=== PATIENT | male | born 1975 | race Caucasian/White ===

== ENCOUNTER 2017-09-28 13:06 | Outpatient (RCR) | payer OTHER, SELFPAY ==
--- NOTE | 2017-09-28 20:15 | MASS.EVAL_ITS ---
Massage Therapy Evaluation: Initial Evaluation Date: 09/28/2017 SUBJECTIVE: Conor is a 42 year old male who was referred to the [facility] facility for a massotherapy evaluation by Dr. Abhinav Paiz with the diagnosis of back and neck pain. Conor presents today with the symptoms of neck and upper back pain and tension. He also has muscle tension and pain in his low back and right hip with pain and numbness radiating down his right leg. Conor reports having a medical history of lumbar pain and chronic neck pain with radiating pain in his neck, upper and mid back. He also complains of numbness in his right upper and lower leg. He reports having minimal limitations during his daily activities but does suffer from restless leg syndrome. OBJECTIVE: Upon observation Conor has poor posture with his head forward and shoulders forward from the neutral position in sitting and standing. After examination and palpation I found Conor to have very high muscle tension with tenderness and myofascial restrictions in his sub occipitals, levator scapulae, trapezius, rhomboids, scalenes, and thoracic paraspinals. His left shoulder was tight and tender in the trapezius, supra and infraspinatus muscles. His right hip, right lumbar muscles and right hamstrings were also very tight with restrictions. The first treatment consisted of a one hour massage to his full body with myofascial release, muscle stripping, trigger point compression techniques, and cervical manual traction. ASSESSMENT: I feel that Conor is a good candidate for massotherapy at this time. He had a favorable response to the first treatment with reduction in his muscle aches, pain and tension. He also had improvement in his cervical flexibility and right hip flexibility. PLAN: The plan of care was reviewed with the patient. The patient is to be seen on as needed basis for a total of ten sessions with the recommendation of once every four weeks for a one hour treatment.
--- NOTE | 2018-02-14 15:46 | MASS.DISCH ---
Massage Therapy Discharge Summary: Discharge Date: 02/14/2018 Conor was seen for a massotherapy evaluation on 09/28/2017 with the diagnosis of back and neck pain. He was treated with one session of massage therapy consisting of deep pressure soft tissue techniques, myofascial release and trigger point compression to his cervical, thoracic, lower back, upper extremities and hips. Conor responded well to the therapy by reporting decreased tension and pain throughout his neck, shoulders, lower back and hips. His goals for therapy were not met due to no follow up treatment sessions performed. At this time this patient is being discharged from our care at [facility] facility.
== END 2017-09-28 19:00 | disposition home or self-care (01) ==
LOC: MASS 13:06
PROVIDERS: Family Provider Family Medicine; PCP Family Medicine; Visit Provider Family Medicine
DX: M54.9 Dorsalgia, unspecified (principal)
CPT/HCPCS: 97124

== ENCOUNTER → 2023-09-17 | Outpatient (CLI) | payer OTHER, SELFPAY ==
[2023-09-17 11:12] LABS: T4 Free Direct 0.92 ng/dL (0.76-1.46); Thyroid Stim Hormone (TSH) 1.15 uIU/mL (0.358-3.74)
[2023-09-20 15:08] LABS: Thyroglobulin Antibody < 1.0 IU/mL (0.0-0.9); Thyroid Peroxidase AB < 9 IU/mL (0-34)
== END | disposition home or self-care (01) ==
PROVIDERS: PCP Family Medicine; Referring Provider Family Medicine; Visit Provider Family Medicine
DX: Z00.00 Encounter for general adult medical examination without abnormal findings (principal); H05.20 Unspecified exophthalmos
CPT/HCPCS: 36415; 84439; 84443; 86376; 86800

== ENCOUNTER → 2023-09-27 | Outpatient (CLI) | payer OTHER, SELFPAY ==
--- NOTE | 2023-09-27 09:14 | MRI_ITS ---
STUDY: MRI BRAIN WITH AND WITHOUT CONTRAST REASON FOR EXAM: Male, 48 years old. UNILATERAL BRYANT, , EXOPTHALMOS RT EYE TECHNIQUE: Standardized multiplanar fat and water weighted pulse sequences were obtained. IV 22ml clariscan was administered for the contrast portion of the examination. COMPARISON: None. FINDINGS: Normal size of the ventricles and extra-axial spaces for the patient''s age. Few punctate hyperintensities in the periventricular and subcortical white matter primarily of the frontal and anterior parietal lobes may represent microangiopathic gliosis from chronic hypertension or metabolic disease but other possibilities include hypercoagulable state, vasculitis, migraine headaches, Lyme disease, or demyelinating disease., No contrast enhancement of these areas. There is no evidence for recent intracranial ischemia or other cause of cytotoxic edema on diffusion weighted imaging (DWI). Normal T2* images of the brain without demonstrated susceptibility artifact. There is no demonstrated hemosiderin stain. Normal bilateral basal ganglia. Normal thalami. There is no extra-axial fluid accumulation. Normal flow voids within the major intracranial circulation suggesting patency by spin echo criteria. Normal venous enhancement. There is no enhancing intra-axial or extra-axial abnormality. Normal sella turcica, pituitary gland, infundibular stalk, optic chiasm and hypothalamus. Normal tectal plate and pineal gland. Normal midbrain, kallie and medulla. Normal cerebellum. Normal basal cisterns. Normal bilateral temporal bones. Normal bilateral internal auditory canals. No demonstrated orbital abnormality, within the constraints of a routine brain study. Normal visualized paranasal sinuses. Normal calvarium and skull base. Normal visualized soft tissue structures. Normal visualized upper cervical spine. MRI/Brain W/WO Contrast IMPRESSION: Few punctate hyperintensities in the periventricular and subcortical white matter primarily of the frontal and anterior parietal lobes may represent microangiopathic gliosis from chronic hypertension or metabolic disease but other possibilities include hypercoagulable state, vasculitis, migraine headaches, Lyme disease, or demyelinating disease. Electronically Signed: Carlos Bartlett MD at 14:28 EDT ,
== END | disposition home or self-care (01) ==
PROVIDERS: PCP Family Medicine; Referring Provider Family Medicine; Visit Provider Family Medicine
DX: H05.241 Constant exophthalmos, right eye (principal); R51.9 Headache, unspecified
CPT/HCPCS: 70553; A9575

== ENCOUNTER → 2023-10-01 | Outpatient (CLI) | payer OTHER, SELFPAY ==
--- NOTE | 2023-10-01 12:42 | MRI_ITS ---
STUDY: MRA OF THE HEAD WITHOUT CONTRAST REASON FOR EXAM: Male, 48 years old. RT EYE UNILAT HEADACHE, COMPARE TO PREVIOUS MRI TECHNIQUE: 3-D ajyb-ez-txknyq (TOF) imaging was performed with MIPs. The study was performed unenhanced. COMPARISON: None. FINDINGS: Normal bilateral petrous carotid arteries. Normal right cavernous carotid artery with a normal supraclinoid bifurcation. Normal left cavernous carotid artery with a normal supraclinoid bifurcation. Normal right A1 segments of the anterior cerebral artery. Normal left A1 segments of the anterior cerebral artery. Normal intact anterior communicating artery (ACOM). Normal bilateral A2 segments of the anterior cerebral arteries. Normal right M1 and M2 segments of the middle cerebral arteries, with a normal M1 bifurcation. Normal left M1 and M2 segments of the middle cerebral arteries, with a normal M1 bifurcation. Normal right posterior communicating artery (PCOM). Normal left posterior communicating artery (PCOM). Normal bilateral vertebral arteries. Normal basilar artery with a normal basilar bifurcation. The visualized bilateral superior cerebellar (SCA) arteries are normal. Normal bilateral P1, P2 and visualized P3 segments of the posterior cerebral arteries. There is no demonstrated aneurysm of the [place]. There is no major vessel occlusion or hemodynamically significant stenosis. There is no demonstrated abnormality of the visualized brain. MRI/MRA Head ONLY without Contrast IMPRESSION: Normal MRA of the head Electronically Signed: Carlos Bartlett MD at 13:54 EDT ,
== END | disposition home or self-care (01) ==
LOC: MRI 12:41
PROVIDERS: PCP Family Medicine; Referring Provider Family Medicine; Visit Provider Family Medicine
DX: H05.241 Constant exophthalmos, right eye (principal); R51.9 Headache, unspecified
CPT/HCPCS: 70544

== ENCOUNTER 2023-12-30 05:27 | Day surgery (SDC) | payer OTHER, SELFPAY ==
[2023-12-30] VITALS (8 sets, daily range): BP systolic 108–163; BP diastolic 72–98; PULSE 62–77; RESP 16; TEMP 36.2–36.9; O2SAT 94–99; BMI 33.5
--- NOTE | 2023-12-30 06:30 | EGD_PTH ---
PATIENT: JOSE MERCADO III LOC: EN U#:[id number] AGE/SX: 48/M ROOM: RE12/30/[address]: Dr. Dustin Martinez DO : 1975 BED: DIS: 12/30/2023 SPEC #: [id number] RECD: 12/30/23 11:06 STATUS: JACI AMPARO #: [id number] RISHI: 12/30/23 06:[address]: Dustin Martinez DEPT: SURGICAL PATHOLOGY RECD BY: Ruthie Albright ENTERED: 12/30/23 12:06 SP TYPE: EGD BIOPSY OT DR: Dr. Abhinav Paiz DO Tissues: A - Esophagus, NOS B - Duodenum, NOS C - Sigmoid colon biopsy Procedures: Special Stain Group I Surgery Specimen Level IV Alcian Blue/PAS (control) HEADER OPERATION: Colonoscopy, EGD with biopsy PRE-OP DIAGNOSIS: GERD, encounter for screening colonoscopy TISSUE SUBMITTED: A- Distal esophagus biopsy, B- Duodenal biopsy, C- Sigmoid polyp biopsy MICROSCOPIC DIAGNOSIS A. Distal esophagus, biopsy: Fragments of gastric mucosa with chronic inflammation. Intestinal metaplasia (goblet cell metaplasia) not identified. See comment. B. Duodenum, biopsy: Fragments of small intestinal mucosa, no pathologic diagnosis. C. Sigmoid polyp, biopsy: Hyperplastic polyp. SKYLA/ 12/31/2023 COMMENT A. Alcian blue/PAS stain with matched control is used in the evaluation of the specimen. MICROSCOPIC DESCRIPTION Slides are reviewed. GROSS DESCRIPTION A. Received in fixative is one container labeled with the patient's name and designated Distal esophagus biopsy. The specimen consists of two irregular fragments of light koo soft tissue that in aggregate measure 1.0 x 0.6 x 0.1 cm. The specimen is totally submitted in one cassette. B. Received in fixative is one container labeled with the patient's name and designated Duodenum biopsy. The specimen consists of multiple irregular fragments of light koo soft tissue that in aggregate measure 1.2 x 0.3 x 0.1 cm. The specimen is totally submitted in one cassette. C. Received in fixative is one container labeled with the patient's name and designated Sigmoid polyp biopsy. The specimen consists of two irregular fragments of light koo soft tissue that in aggregate measure 0.6 x 0.2 x 0.1 cm. The specimen is totally submitted in one cassette. SJ.mr 12/30/2023 TC:3 CPT:47974w0, 13937
--- NOTE | 2023-12-30 06:34 | PCM.PRE.AN2 ---
ASA Classification* ASA Classification ASA Classification: 2 Assessment & Plan Anesthesia* Anesthesia Assessment Anesthesia Assessment: Discussed sedation and/or anesthesia options, risks, benefits, and alternatives with patient/parents/legal guardian/POA. Questions invited. The patient/parents/legal guardian/POA seems to understand and agrees to proceed with anesthesia plan. Reviewed the physical assessment, medical history, allergy history and patient home medications list prior to surgery/procedure/anesthetic and documented any changes. Performed airway and anesthesia risk assessments. Anesthesia Type Anesthesia Type: MAC History Source History Obtained from:: Patient and Chart Anesthesia Focused Assessment* Temperature: 97.1 F Pulse Rate: 70 Blood Pressure: 163/98 Respiratory Rate: 16 Pulse Ox: 99 Airway Assessment Mouth opens: >3 cm Mallampati Score: II Teeth Condition: Intact Neck Range of motion (ROM): Full ROM Focused Labs Anesthesia Preop lab: CBC WBC 8.1 K/mm3 (4.4-11.0) 09/17/23 06:47 RBC 5.19 M/mm3 (4.6-6.2) 09/17/23 06:47 Hgb 15.5 g/dL (13.0-16.5) 09/17/23 06:47 Hct 46.2 % (40-54) 09/17/23 06:47 Plt Count 360 K/mm3 (150-450) 09/17/23 06:47 CHEMISTRY Potassium 3.9 mmol/L (3.5-5.1) 09/17/23 06:47 Sodium 138 mmol/L (136-145) 09/17/23 06:47 Magnesium 1.8 mg/dL (1.8-2.4) 02/13/15 14:44 Phosphorus 3.5 mg/dL (2.5-4.9) 09/17/23 06:47 BUN 11 mg/dL (7-18) 09/17/23 06:47 Creatinine 0.98 mg/dL (0.70-1.30) 09/17/23 06:47 Glucose 93 mg/dL (74-106) 09/17/23 06:47 TSH 1.15 uIU/mL (0.358-3.74) 09/17/23 08:54 COAG Pre-Assessment Diagnosis/Proposed Procedure Planned Operative Procedure(s): COLONOSCOPY, EGD Anesthesia History Anesthesia History - manager installation: Anesthesia History - manager installation Hx Hospitalization No 12/28/23 15:29 Any Problems With Anesthesia No 12/28/23 15:29 Cholinesterase deficiency No 12/28/23 15:29 You/Your Family Experience No 12/28/23 15:29 fever (hyperthermia) with Relationship Recent Exposure to Contagious No 12/30/23 05:55 Disease Does patient have nerve No 12/28/23 15:29 stimulator Patient instructed to have device shut off --Does patient have Pacemaker No 12/30/23 05:55 or ICD? When Was Last Pacemaker Check QUESTION #4 FULL TEXT: You/Your Family Experience fever (hyperthermia) with Anesthesia Last Oral Intake Last Oral intake: Last Oral Intake NPO since 04:30 12/30/23 05:55 Meds taken in AM with sips of Yes 12/30/23 05:55 water? Meds patient instructed to take am of surgery PONV PONV - manager installation: PONV - manager installation Female No 12/28/23 15:29 HX of Motion Sickness No 12/28/23 15:29 HX of N/V After Surgery No 12/28/23 15:29 Non-Smoker Yes 12/28/23 15:29 Duration of Surgery greater No 12/28/23 15:29 than 60 minutes Number of Risk Factors 1 12/28/23 15:29 PONV Score Low Risk 12/28/23 15:29 Height & Weight Height & Weight: Anesthesia: Height & Weight Height 6 ft 12/30/23 05:55 Weight: 112 kg 12/30/23 05:55 Body Mass Index (BMI) 33.5 12/30/23 05:55 Respiratory Assessment Respiratory Assessment - manager installation: Respiratory Tract Infection Hx - manager installation Hx Respiratory Tract Infection No 12/28/23 15:29 STOP Sleep Apnea STOP Sleep Apnea - manager installation: STOP Sleep Apnea - manager installation Hx Hypertension Yes: CONTROLLED WITH MEDS 12/28/23 15:29 Hx Sleep Apnea Yes 12/28/23 15:29 CPAP Yes 12/28/23 15:29 BIPAP No 12/28/23 15:29 Do you snore loudly (louder than talking or can be heard Do you often feel tired/ fatigued/ sleepy during daytime? Has anyone observed you stop breathing during sleep? STOP Results Positive 12/28/23 15:29 QUESTION #5 FULL TEXT : Do you snore loudly (louder than talking or can be heard through closed doors)? 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 Specify any problems Hx of Preganancy in last 3 N/A 12/28/23 15:29 Months Nurse Filling Out Transfusion [id number] 12/28/23 15:29 & Questions: Date: 12/28/23 12/28/23 15:29 Time: 15:31 12/28/23 15:29 Patient unable to answer at this time (ie. confused, unrespo /Reproduction History /Reproductive History - manager installation: /Reproductive Hx- manager installation Hx Now Gestational Age (in weeks): EDC: Hx Hx Para Hx Section SAB PFSH Medical History Wears glasses Fatty liver Gastric reflux Sleep apnea CPAP (continuous positive airway pressure) dependence Home Medications ?Medication ?Instructions ?Recorded ?Last Taken ?Type gabapentin 600 mg tablet,extended 900 mg PO QPM 09/30/23 Unknown History release 24 hr hydrochlorothiazide 25 mg tablet 25 mg PO DAILY 09/30/23 Unknown History omeprazole 20 mg capsule,delayed 20 mg PO DAILY 09/30/23 12/30/23 History release magnesium 200 mg tablet 200 mg PO DAILY 12/28/23 Unknown History xylllcmz-fma-komne 120 mcg-lutein 1 tab PO DAILY 12/28/23 Unknown History 150 mcg-herb 50 mg chewable tablet (Alive Men's 50 Plus Multivitamin) omega 9-xre-gmj-fish oil 1,200 mg 1 cap PO DAILY 12/28/23 Unknown History (144 mg-216 mg) capsule (Fish Oil) Allergy/AdvReac Type Severity Reaction Status Date / Time No Known Allergies Allergy Verified 12/30/23 05:49 Surgical History History of repair of pyloric stenosis Social History Smoking Status: Former smoker Review of Systems (Anesthesia) ROS Narrative System reviewed and no additional complaints, except as documented.
--- NOTE | 2023-12-30 06:35 | PCM.HP.BLA ---
History and Physical Date of Admission: 12/30/23 BILLY MERCADO, is a 48 M who presents to the office today for initial consult. *BGI established 12.03.23 pt reports that it has been 10+ years since last scopes and is here to establish care and get scopes done. Pt reports that his only GI symptom is HB, is taking Omeprazole 20mg daily and states he only had HB once in the past week. ROS Const Constitutional: No fatigue, fever(s) or weight change ENT ENT: No difficulty swallowing Gastro GI: Positive for heartburn; No abdominal pain, belching, bloating, change in bowel habits, change in stool character, coffee ground emesis, constipation, cramping, diarrhea, difficulty swallowing, feeling full early, excessive flatus, incontinent of stools, Vomiting blood/hematemesis, Blood in stool, loose stools, Black,tarry stools, nausea/dyspepsia, pain with swallowing, vomiting or other Musc Musculoskeletal: Positive for restless legs and leg pain at night; No joint pain Skin Skin: No yellowing of the eye or itchy eyes Neuro Neurology: Positive for restless legs Psych Psychiatric: No anxiety and No depression Endo Endocrine: No fatigue or weight change Aller/Imm Allergy/Immunologic: No itchy eyes Brian/Lymp Hematologic/Lymphatic: No easy bleeding or easy bruising Exam Const General: cooperative and comfortable Nutritional Appearance: average body habitus and well nourished [facility] Head: normal to inspection Ears: hearing grossly normal bilaterally Nose: external nose normal Face and sinus: normal facial exam Mouth: oral mucosae normal Throat: posterior oropharynx normal Eyes General: appearance normal, both eyes and all related structures Neck Neck: normal visual inspection Chest Chest palpation & inspection: normal inspection of the chest and normal palpation of entire chest wall Resp Effort & Inspection: normal respiratory effort Auscultation: Bilateral: Clear to Auscultation Cardio Palpation: normal PMI Rate: regular rate Rhythm: regular rhythm GI Inspection: normal to inspection Auscultation: normal bowel sounds Percussion: normal to percussion Palpation: no hepatosplenomegaly Skin General: no rashes or lesions noted Neuro General: patient alert Extrem General: normal to inspection Psych Affect: normal affect Assessment and Plan Assessment and Plan (1) GERD (gastroesophageal reflux disease): Status: Acute (2) Encounter for screening colonoscopy: Status: Acute Plan: 48-year-old gentleman with past medical history of gastroesophageal reflux disease. He has had reflux disease for several years. He has always been a PPI therapy. He is not having that he atypical symptoms of reflux disease including no chest pain, shortness of breath, cough or abdominal pain. He is also here because he needs a screening colonoscopy. He will undergo upper and lower endoscopy to evaluate GI tract. He has not been just a bit of time infection, sepsis, perforation, and . He will have an ASA of 3. I have examined the patient and the H&P has been reviewed. There are no clinical changes since date of exam.
--- NOTE | 2023-12-30 07:15 | OP.EGD_ITS ---
Patient Name: Conor Tipton Procedure Date: 12/30/2023 6:26 AM Date of : 1975 Age: 48 Procedure: Upper GI endoscopy Indications: Heartburn, Esophageal reflux Providers: Dustin Martinez DO Referring MD: Abhinav Paiz Medicines: Monitored Anesthesia Care Patient Profile: This is a 48 year old male. Refer to note in patient chart for documentation of history and physical. Patient has symptoms of chronic heartburn. Complications: No immediate complications. Procedure: Pre-Anesthesia Assessment: - Prior to the procedure, a History and Physical was performed, and patient medications and allergies were reviewed. The patient is competent. The risks and benefits of the procedure and the sedation options and risks were discussed with the patient. All questions were answered and informed consent was obtained. Patient identification and proposed procedure were verified by the physician in the pre-procedure area. Mental Status Examination: alert and oriented. Airway Examination: normal oropharyngeal airway and neck mobility. Respiratory Examination: clear to auscultation. CV Examination: normal. Prophylactic Antibiotics: The patient does not require prophylactic antibiotics. Prior Anticoagulants: The patient has taken no anticoagulant or antiplatelet agents except for NSAID medication. ASA Grade Assessment: II - A patient with mild systemic disease. After reviewing the risks and benefits, the patient was deemed in satisfactory condition to undergo the procedure. The anesthesia plan was to use monitored anesthesia care (MAC). Immediately prior to administration of medications, the patient was re-assessed for adequacy to receive sedatives. The heart rate, respiratory rate, oxygen saturations, blood pressure, adequacy of pulmonary ventilation, and response to care were monitored throughout the procedure. The physical status of the patient was re-assessed after the procedure. After obtaining informed consent, the endoscope was passed under direct vision. Throughout the procedure, the patient's blood pressure, pulse, and oxygen saturations were monitored continuously. The was introduced through the mouth, and advanced to the second part of duodenum. The upper GI endoscopy was accomplished without difficulty. The patient tolerated the procedure well. Scope In: 6:47:33 AM Scope Out: 6:52:18 AM Total Procedure Duration Time 0 hours 4 minutes 45 seconds Findings: Non-severe esophagitis with no bleeding was found 38 to 40 cm from the incisors. Biopsies were taken with a cold forceps for histology. Verification of patient identification for the specimen was done. Estimated blood loss was minimal. Abnormal motility was noted in the esophagus. The cricopharyngeus was normal. There are extra peristaltic waves in the esophageal body. The distal esophagus/lower esophageal sphincter is spastic, but gives up passage to the endoscope. Tertiary peristaltic waves are noted. Mucosal changes including ringed esophagus and small-caliber esophagus were found in the lower third of the esophagus. Biopsies were obtained from the proximal and distal esophagus with cold forceps for histology of suspected eosinophilic esophagitis. Verification of patient identification for the specimen was done. Estimated blood loss was minimal. A small hiatal hernia was present. Diffuse mildly congested mucosa was found in the entire examined stomach. Patchy moderate inflammation characterized by congestion (edema), erosions and erythema was found in the duodenal bulb. Biopsies were taken with a cold forceps for histology. Verification of patient identification for the specimen was done. Estimated blood loss was minimal. Impression: - Non-severe reflux esophagitis with no bleeding. Biopsied. - Abnormal esophageal motility, suspicious for presbyesophagus. - Esophageal mucosal changes suggestive of eosinophilic esophagitis. - Small hiatal hernia. - Congestive gastropathy. - Bile duodenitis. Biopsied. - Biopsies were taken with a cold forceps for evaluation of eosinophilic esophagitis. Recommendation: - Discharge patient to home. - Resume previous diet. - Continue present medications. - Await pathology results. Procedure Code(s): --- Professional --- 01311, Esophagogastroduodenoscopy, flexible, transoral; with biopsy, single or multiple CPT copyright 2021 [employer]. All rights reserved. The codes documented in this report are preliminary and upon crystallizer operator review may be revised to meet current compliance requirements. Dustin Martinez DO 12/30/2023 7:14:34 AM This report has been signed electronically. Number of Addenda: 0 Note Initiated On: 12/30/2023 6:26 AM
--- NOTE | 2023-12-30 07:16 | OP.CCLET_ITS ---
12/30/2023 Abhinav Paiz [address] [place] [address] Re : Upper GI endoscopy procedure for Conor Tipton Dear Dr. Paiz This procedure was performed on November. My impressions and recommendations are as follows: Impressions : - Non-severe reflux esophagitis with no bleeding. Biopsied. - Abnormal esophageal motility, suspicious for presbyesophagus. - Esophageal mucosal changes suggestive of eosinophilic esophagitis. - Small hiatal hernia. - Congestive gastropathy. - Bile duodenitis. Biopsied. - Biopsies were taken with a cold forceps for evaluation of eosinophilic esophagitis. Recommendations : - Discharge patient to home. - Resume previous diet. - Continue present medications. - Await pathology results. My findings are described in the full procedure note, which is enclosed. If I can be of further assistance, please feel free to contact me at . Sincerely, Dustin Martinez, 12/30/2023 7:14:34 AM This report has been signed electronically.
--- NOTE | 2023-12-30 07:17 | PCM.POST.ANE ---
Anesthesia: Postop Eval I Current Vital Signs Temperature: 98.5 F Pulse Rate: 77 Blood Pressure: 109/72 Respiratory Rate: 16 Pulse Ox: 95 Oxygen Delivery Method: Room Air Assessment Airway patent: Yes Spontaneous unlabored respirations: Yes Mental status: Awake and Calm nausea: No Vomiting: No Anesthesia Complication: No Fluid Hydration Crystalloid volume administer (ml): 60 Total IV fluid infused: 60 Progress Note Anesthesia document: Postop Eval 1 completed: Yes
--- NOTE | 2023-12-30 07:18 | OP.CCLET_ITS ---
12/30/2023 Abhinav Paiz [address] [facility] [place] [address] Re : Colonoscopy procedure for Conor Tipton Dear Dr. Paiz This procedure was performed on November. My impressions and recommendations are as follows: Impressions : - One 5 mm polyp in the sigmoid colon, removed with a cold biopsy forceps. Resected and retrieved. - Diverticulosis in the recto-sigmoid colon, in the sigmoid colon, at the hepatic flexure and in the ascending colon. Recommendations : - Discharge patient to home. - Resume previous diet. - Repeat colonoscopy in 5 years for surveillance. - Continue present medications. My findings are described in the full procedure note, which is enclosed. If I can be of further assistance, please feel free to contact me at . Sincerely, Dustin Martinez, 12/30/2023 7:17:25 AM This report has been signed electronically.
--- NOTE | 2023-12-30 07:18 | OP.COLON_ITS ---
Patient Name: Conor Tipton Procedure Date: 12/30/2023 6:52 AM Date of : 1975 Age: 48 Procedure: Colonoscopy Indications: Screening for colorectal malignant neoplasm Providers: Dustin Martinez DO Referring MD: Abhinav Paiz Medicines: Monitored Anesthesia Care Patient Profile: This is a 48 year old male. Refer to note in patient chart for documentation of history and physical. Patient has symptoms of chronic heartburn. Last Colonoscopy: none. The patient's first colonoscopy is today. Complications: No immediate complications. Procedure: Pre-Anesthesia Assessment: - Prior to the procedure, a History and Physical was performed, and patient medications and allergies were reviewed. The patient is competent. The risks and benefits of the procedure and the sedation options and risks were discussed with the patient. All questions were answered and informed consent was obtained. Patient identification and proposed procedure were verified by the physician in the pre-procedure area. Mental Status Examination: alert and oriented. Airway Examination: normal oropharyngeal airway and neck mobility. Respiratory Examination: clear to auscultation. CV Examination: normal. Prophylactic Antibiotics: The patient does not require prophylactic antibiotics. Prior Anticoagulants: The patient has taken no anticoagulant or antiplatelet agents except for NSAID medication. ASA Grade Assessment: II - A patient with mild systemic disease. After reviewing the risks and benefits, the patient was deemed in satisfactory condition to undergo the procedure. The anesthesia plan was to use monitored anesthesia care (MAC). Immediately prior to administration of medications, the patient was re-assessed for adequacy to receive sedatives. The heart rate, respiratory rate, oxygen saturations, blood pressure, adequacy of pulmonary ventilation, and response to care were monitored throughout the procedure. The physical status of the patient was re-assessed after the procedure. After I obtained informed consent, the scope was passed under direct vision. Throughout the procedure, the patient's blood pressure, pulse, and oxygen saturations were monitored continuously. The was introduced through the anus and advanced to the cecum, identified by appendiceal orifice and ileocecal valve. The colonoscopy was performed without difficulty. The patient tolerated the procedure well. The quality of the bowel preparation was adequate. The ileocecal valve, appendiceal orifice, and rectum were photographed. Scope In: 6:54:46 AM Scope Withdrawal Time 0 hours 8 minutes 30 seconds Scope Out: 7:06:24 AM Total Procedure Duration Time 0 hours 11 minutes 38 seconds Findings: The perianal and digital rectal examinations were normal. A 5 mm polyp was found in the sigmoid colon. The polyp was sessile. The polyp was removed with a cold biopsy forceps. Resection and retrieval were complete. Verification of patient identification for the specimen was done. Estimated blood loss was minimal. Multiple medium-mouthed diverticula were found in the recto-sigmoid colon, sigmoid colon, hepatic flexure and ascending colon. Impression: - One 5 mm polyp in the sigmoid colon, removed with a cold biopsy forceps. Resected and retrieved. - Diverticulosis in the recto-sigmoid colon, in the sigmoid colon, at the hepatic flexure and in the ascending colon. Recommendation: - Discharge patient to home. - Resume previous diet. - Repeat colonoscopy in 5 years for surveillance. - Continue present medications. Procedure Code(s): --- Professional --- 22701, Colonoscopy, flexible; with biopsy, single or multiple CPT copyright 2021 [employer]. All rights reserved. The codes documented in this report are preliminary and upon railroad crossing protection maintainer review may be revised to meet current compliance requirements. Dustin Martinez DO 12/30/2023 7:17:25 AM This report has been signed electronically. Number of Addenda: 0 Note Initiated On: 12/30/2023 6:52 AM
--- NOTE | 2023-12-30 07:28 | PCM.POSTANE2 ---
Anesthesia Postop Eval I Sum Postop Eval Completion status Anesthesia document: Postop Eval 1 completed: Yes Anesthesia Postop Eval I Summary Anesthesia Postop Eval I Summary: Anesthesia Postop Eval I: Assessment Summary Airway patent Yes 12/30/23 07:18 [email or web address] Spontaneous unlabored Yes 12/30/23 07:18 [email or web address] respirations Mental status Awake,Calm 12/30/23 07:18 [email or web address] nausea No 12/30/23 07:18 [email or web address] Vomiting No 12/30/23 07:18 [email or web address] Anesthesia Postop Eval I: Fluid Summary Crystalloid volume administer 60 12/30/23 07:18 [email or web address] (ml) Colloids volume administered ( ml) Blood Product volume administered (ml) Total IV fluid infused 60 12/30/23 07:18 [email or web address] Anesthesia Postop Eval I: Summary Notes Anesthesia Complication No 12/30/23 07:18 [email or web address] Anesthesia Complication Comment: Post-operative progress note Anesthesia: Postop Eval II Evaluation Mental status: Awake Pain Level: 0 nausea: No Vomiting: No
== END 2023-12-30 07:53 | disposition home or self-care (01) ==
LOC: EN 05:28 → AC 05:29
PROVIDERS: PCP Family Medicine; Referring Provider Family Medicine; Visit Provider Internal Medicine Gastroenterology
PROC: 0DJD8ZZ Inspection of Lower Intestinal Tract, Via Natural or Artificial Opening Endoscopic (ICD-10-PCS; CPT 45378; principal; 2023-12-30 06:25)
DX: Z12.11 Encounter for screening for malignant neoplasm of colon (principal); K44.9 Diaphragmatic hernia without obstruction or gangrene; K21.00 Gastro-esophageal reflux disease with esophagitis, without bleeding; K57.30 Diverticulosis of large intestine without perforation or abscess without bleeding; K29.80 Duodenitis without bleeding; K63.5 Polyp of colon; Z79.899 Other long term (current) drug therapy; K30 Functional dyspepsia; I10 Essential (primary) hypertension
CPT/HCPCS: 45380; 43239; 88305; 88312; A4216; J2405